=== PATIENT | female | born 1985 | race Caucasian/White ===

== ENCOUNTER 2019-06-15 20:06 | Emergency (ER) | payer OTHER, MEDICAID ==
[~2019-06-15] VITALS: Ht 175.3 cm; Wt 61.2 kg
[~2019-06-15 20:06] MED LIST: ADDERALL XR 1010 MG; BACTRIM DS TAB1 EACH PO; CIPRO500 MG PO; HIBICLENS120 ML TP; HYDROCODONE-AP1 EAC6 PO; IBUPROFEN 800800 M1 PO; MACROBID 100 M100 M3 PO; NAPROSYN500 MG PO; NOHOMEMEDICATIONS; NORCO 5-325 TA1 EACH PO; PRENATAL COMPL1 EACH PO; ROBAXIN500 MG PO
[2019-06-15] MEDS ORDERED: ERYTHROMYCIN E3.5 G3 OPHTHALMIC (20:25)
[2019-06-15 20:29] VITALS: BP 116/79
== END 2019-06-15 20:30 | disposition home or self-care (01) ==
LOC: M.ERS 20:06
DX: H10.89 Other conjunctivitis (principal); F17.210 Nicotine dependence, cigarettes, uncomplicated; Z88.8 Allergy status to other drugs, medicaments and biological substances

== ENCOUNTER 2021-01-08 17:18 | Emergency (ER) | payer OTHER, MEDICAID ==
[~2021-01-08] VITALS: Ht 160 cm; Wt 79.4 kg
[~2021-01-08 17:18] MED LIST changes: +ERYTHROMYCIN E3.5 G3 OPHTHALMIC
[2021-01-08 17:48] LABS: ABSOLUTE BASOPHILS 0.1 thou/uL (0.0-0.2); ABSOLUTE EOSINOPHILS 0.3 thou/uL (0.0-0.7); ABSOLUTE LYMPHOCYTES 2.7 thou/uL (0.8-5.3); ABSOLUTE NEUTROPHILS 7.8 thou/uL (1.6-8.1); BASOPHILS 0.7 %; EOSINOPHILS 2.2 %; HEMATOCRIT 34.5 % (37.0-47.0); HEMOGLOBIN 11.7 gm/dL (12.0-15.0); LYMPHOCYTES 22.9 %; MCHC 33.8 g/dL (28.0-37.0); MCV 88.9 fL (80.0-100.0); MONOCYTES 8.7 %; MPV 6.5 fl. (7.2-11.1); NUCLEATED RBCS 0 /100WBC; PLATELET COUNT* 482 thou/uL (150-400); POLYS 65.5 %; RBC 3.88 mil/uL (4.20-5.00); RDW-CV 13.3 % (10.5-14.5); WBC 11.9 thou/uL (4.0-11.0)
[2021-01-08 17:52] LABS: CALCIUM 8.2 mg/dL (8.5-10.1); CREATININE 0.6 mg/dL (0.6-1.3); POTASSIUM 3.4 mmol/L (3.5-5.1)
[2021-01-08 17:57] LABS: ALBUMIN 2.6 g/dL (3.4-5.0); TOTAL BILIRUBIN 0.1 mg/dL (<0.1-1.0); TOTAL PROTEIN 6.6 g/dL (6.4-8.2)
[2021-01-08 18:06] LABS: URINE BILIRUBIN NEGATIVE (Negative); URINE BLOOD 3+ (Negative); URINE COLOR YELLOW; URINE GLUCOSE-RANDOM NEGATIVE (Negative); URINE KETONES NEGATIVE (Negative); URINE LEUKOCYTES-REFLEX NEGATIVE (Negative); URINE NITRITE-REFLEX POSITIVE (Negative); URINE PROTEIN NEGATIVE (Negative); URINE SPECIFIC GRAVITY <= 1.005 (1.005-1.030); URINE UROBILINOGEN 0.2 E.U./dl (0.2-1.0)
[2021-01-08 18:07] LABS: URINE CLARITY HAZY
[2021-01-08 18:09] LABS: BACTERIA-REFLEX None Seen /HPF (None Seen); CASTS None Seen /LPF (None Seen); CRYSTALS None Seen /LPF (None Seen); SQUAMOUS 4-10 Moderate /LPF (0-3); URINE RBC 0-2 Rare /HPF (0-2); URINE WBC-REFLEX None Seen /HPF (0-5)
[2021-01-08] MEDS ORDERED: CEPHALEXIN500 MG PO (19:16)
[2021-01-08 19:32] VITALS: BP 120/72
== END 2021-01-08 19:32 | disposition home or self-care (01) ==
LOC: M.ERS 17:18
PROVIDERS: Physician Assistant
DX: O44.01 Complete placenta previa NOS or without hemorrhage, first trimester (principal); O23.41 Unspecified infection of urinary tract in pregnancy, first trimester; N39.0 Urinary tract infection, site not specified; F17.210 Nicotine dependence, cigarettes, uncomplicated; Z3A.12 12 weeks gestation of pregnancy

== ENCOUNTER 2021-03-09 20:34 | Emergency (ER) | payer OTHER, MEDICAID ==
[~2021-03-09] VITALS: Ht 160 cm; Wt 79.4 kg
[~2021-03-09 20:34] MED LIST changes: +CEPHALEXIN500 MG PO
[2021-03-09 20:51] LABS: URINE BILIRUBIN NEGATIVE (Negative); URINE BLOOD NEGATIVE (Negative); URINE CLARITY CLEAR; URINE COLOR YELLOW; URINE GLUCOSE-RANDOM NEGATIVE (Negative); URINE KETONES NEGATIVE (Negative); URINE LEUKOCYTES-REFLEX 1+ (Negative); URINE PROTEIN NEGATIVE (Negative); URINE UROBILINOGEN 0.2 E.U./dl (0.2-1.0)
[2021-03-09 20:53] LABS: URINE NITRITE-REFLEX POSITIVE (Negative)
[2021-03-09 21:04] LABS: BACTERIA-REFLEX >30 Many /HPF (None Seen); MUCUS None Seen strn/LPF (None Seen); SQUAMOUS 4-10 Moderate /LPF (0-3); URINE RBC None Seen /HPF (0-2); URINE WBC-REFLEX 0-5 Rare /HPF (0-5)
[2021-03-09 21:05] LABS: AMP/METHAMP POSITIVE (Negative); BARBITURATES Negative (Negative); BENZODIAZEPINES Negative (Negative); COCAINE Negative (Negative); METHADONE Negative (Negative); OPIATES Negative (Negative); PCP Negative (Negative); THC Negative (Negative)
[2021-03-09 21:05] LABS: CASTS None Seen /LPF (None Seen); CRYSTALS None Seen /LPF (None Seen)
[2021-03-09 21:20] LABS: INFLUENZA A ANTIGEN Negative (Negative); INFLUENZA B ANTIGEN Negative (Negative)
[2021-03-09 21:25] LABS: ABSOLUTE BASOPHILS 0.1 thou/uL (0.0-0.2); ABSOLUTE EOSINOPHILS 0.1 thou/uL (0.0-0.7); ABSOLUTE LYMPHOCYTES 0.5 thou/uL (0.8-5.3); ABSOLUTE MONOCYTES 1.2 thou/uL (0.0-1.2); ABSOLUTE NEUTROPHILS 8.9 thou/uL (1.6-8.1); BASOPHILS 0.6 %; HEMATOCRIT 29.3 % (37.0-47.0); HEMOGLOBIN 9.8 gm/dL (12.0-15.0); LYMPHOCYTES 4.9 %; MCH 28.5 pg (26.0-34.0); MCHC 33.5 g/dL (28.0-37.0); MCV 85.1 fL (80.0-100.0); MONOCYTES 10.9 %; MPV 6.5 fl. (7.2-11.1); NUCLEATED RBCS 0 /100WBC; PLATELET COUNT* 359 thou/uL (150-400); POLYS 82.6 %; RBC 3.44 mil/uL (4.20-5.00); RDW-CV 14.1 % (10.5-14.5); WBC 10.7 thou/uL (4.0-11.0)
[2021-03-09 21:52] LABS: CALCIUM 7.8 mg/dL (8.5-10.1); CREATININE 0.6 mg/dL (0.6-1.3); POTASSIUM 3.7 mmol/L (3.5-5.1)
[2021-03-09 21:57] LABS: ALBUMIN 2.2 g/dL (3.4-5.0); TOTAL BILIRUBIN 0.2 mg/dL (<0.1-1.0); TOTAL PROTEIN 6.2 g/dL (6.4-8.2)
[2021-03-10 00:13] VITALS: BP 99/54
--- NOTE | 2021-03-10 12:23 | EKG ---
[place] [address] ELECTROCARDIOGRAM REPORT Name: DORIS DORANTES Pinky Room: [facility]#: [id number] Admission: 03/09/21 Attend Phys: Discharge: 03/10/21 Date of : 83 Date of Service: 03/09/212116 Report #: [id number] THIS REPORT FOR: //name// [facility] ED Test Date: 2021-03-09 Test Time: 21:17:10 Pat Name: DORIS DORANTES Department: Room: Gender: Ad Taker: : 1985 Requested By: Isaura Palumbo Order Number: [id number] MD: Nikolay Riddle Measurements Intervals [place] Rate: 120 P: 47 SC: 117 QRS: 69 QRSD: 86 T: 27 QT: 318 QTc: 450 Interpretive Statements Sinus tachycardia No previous ECG available for comparison Electronically Signed On 03-10-2021 12:23:15 [employer] by Nikolay Riddle [email or web address] <ELECTRONICALLY SIGNED> By: Nikolay Riddle MD, [facility] 03/10/21 1223 16 16 Nikolay Riddle MD, FACC /EPI
== END 2021-03-10 00:13 | disposition short-term general hospital (02) ==
LOC: M.ERS 20:34
PROVIDERS: Emergency Medicine
DX: O23.42 Unspecified infection of urinary tract in pregnancy, second trimester (principal); Z20.822 Contact with and (suspected) exposure to COVID-19; N39.0 Urinary tract infection, site not specified; F17.210 Nicotine dependence, cigarettes, uncomplicated; Z3A.24 24 weeks gestation of pregnancy